=== PATIENT | male | born 2000 | race Caucasian/White ===

== ENCOUNTER 2020-09-26 12:28 | Inpatient (IN) | payer MEDICARE, MEDICAID ==
[~2020-09-26] VITALS: Ht 91.4 cm; Wt 37.3 kg
--- NOTE | 2020-09-26 12:52 | NUR ---
Pt's caregiver named Wilson states that she needs to leave and go to an appointment and would like a call when the patient is ready to be picked up. Her number is [phone]
[2020-09-26] MEDS ORDERED: SODIUM CHLORIDE FLUSH 10ML SYR IVF ONE (14:00)
[2020-09-26 14:32] LABS: BASOPHILS % (AUTO) 1 % (0-1); EOSINOPHILS % (AUTO) 3 % (1-7); LYMPHOCYTES % (AUTO) 26 % (22-44); MEAN CORPUSCULAR HEMOGLOBIN 28.1 pg (27.5-34.5); MEAN CORPUSCULAR HGB CONC 33.7 g/dL (33.2-36.2); MEAN PLATELET VOLUME 7.9 fL (7.4-10.4); MONOCYTES % (AUTO) 12 % (2-9); NEUTROPHILS % (AUTO) 58 % (42-75); PLATELET COUNT 298 x10^3/uL (130-400); RED CELL DISTRIBUTION WIDTH 14.7 % (9.4-14.8)
[2020-09-26 14:35] LABS: ANION GAP 10 mmol/L (5-15); CALCIUM 9.3 mg/dL (8.5-10.1); CHLORIDE 112 mmol/L (98-107)
[2020-09-26 14:38] LABS: ALANINE AMINOTRANSFERASE 14 U/L (12-78); ALKALINE PHOSPHATASE 236 U/L (45-117); BILIRUBIN,TOTAL 0.3 mg/dL (0.2-1.0); CREATININE 3.09 mg/dL (0.7-1.3); TOTAL PROTEIN 8.5 g/dL (6.4-8.2)
[2020-09-26 14:51] LABS: MICROSCOPIC INDICATED
--- NOTE | 2020-09-26 15:39 | NUR ---
PT RESTING IN BED. PT HAS EQUAL UNLABORED BREATHS. PT REFUSED ANY CURRENT WANTS OR NEEDS.
[2020-09-26] MEDS ORDERED: CEFTRIAXONE 1,000 MG in DEXTROSE 5% 50 ML IVPB ONE (16:00)
[2020-09-26] MEDS ORDERED: SODIUM CHLORIDE FLUSH 10ML SYR IVF PRN (16:30)
[2020-09-26] MEDS ORDERED: ONDANSETRON ODT 4 MG PO PRN (19:00)
[2020-09-26] MEDS ORDERED: DOCUSATE 100 MG CAPSULE PO PRN (19:00)
[2020-09-26] MEDS ORDERED: MELATONIN 5 MG TABLET PO PRN (19:00)
--- NOTE | 2020-09-26 20:15 | NUR ---
PT STATED "HE DOES NOT REMEBER HIS HOME MEDS"
[2020-09-26 20:30] VITALS: BP 154/71
[2020-09-27 00:30] VITALS: BP 129/76
[2020-09-27 00:54] VITALS: BP 154/71
[2020-09-27] MEDS ORDERED: HYDROmorphone 2 MG/ML, 1ML IVPush PRN (03:30)
[2020-09-27 05:54] LABS: BASOPHILS % (AUTO) 1 % (0-1); EOSINOPHILS % (AUTO) 3 % (1-7); LYMPHOCYTES % (AUTO) 32 % (22-44); MEAN CORPUSCULAR HGB CONC 34.1 g/dL (33.2-36.2); MEAN PLATELET VOLUME 7.9 fL (7.4-10.4); MONOCYTES % (AUTO) 14 % (2-9); NEUTROPHILS % (AUTO) 50 % (42-75); PLATELET COUNT 245 x10^3/uL (130-400); RED BLOOD COUNT 3.45 x10^6/uL (4.38-5.82); RED CELL DISTRIBUTION WIDTH 14.7 % (9.4-14.8)
[2020-09-27 06:22] LABS: CHLORIDE 108 mmol/L (98-107)
[2020-09-27 06:30] LABS: ALANINE AMINOTRANSFERASE 13 U/L (12-78); ALBUMIN 2.5 g/dL (3.4-5.0); ALKALINE PHOSPHATASE 207 U/L (45-117); ANION GAP 16 mmol/L (5-15); BILIRUBIN,TOTAL 0.3 mg/dL (0.2-1.0); CALCIUM 9.1 mg/dL (8.5-10.1); CREATININE 3.17 mg/dL (0.7-1.3); TOTAL PROTEIN 7.7 g/dL (6.4-8.2)
[2020-09-27 07:42] VITALS: BP 124/77
[2020-09-27] MEDS: LACTATED RINGERS 1,000 ML IV SCH ×2 (10:35→23:20)
[2020-09-27 12:29] VITALS: BP 128/77
[2020-09-27 12:36] LABS: CHLORIDE,URINE RANDOM 34 mmol/L; POTASSIUM,URINE RANDOM 25 mmol/L; SODIUM,URINE RANDOM 58 mmol/L
[2020-09-27 12:37] LABS: CREATININE,URINE RANDOM 45.7 mg/dL
[2020-09-27] MEDS: ACETAMINOPHEN 325 MG TABLET PO PRN (14:03)
[2020-09-27] MEDS ORDERED: FUROSEMIDE 20 MG/2 ML ONE (15:20)
[2020-09-27] MEDS: CEFTRIAXONE 1,000 MG in DEXTROSE 5% 50 ML IVPB SCH (16:45)
[2020-09-27] MEDS: SODIUM BICARBONATE 8.4% 75 MEQ in SODIUM CHLORIDE 0.45% 1,000 ML IV SCH (17:29)
[2020-09-27 18:59] VITALS: BP 116/70
[2020-09-28 00:25] VITALS: BP 143/83
[2020-09-28 05:38] LABS: ALBUMIN 2.7 g/dL (3.4-5.0); ANION GAP 14 mmol/L (5-15); CALCIUM 9.3 mg/dL (8.5-10.1); CHLORIDE 111 mmol/L (98-107); CREATININE 2.95 mg/dL (0.7-1.3)
[2020-09-28 07:02] VITALS: BP 146/82
[2020-09-28] MEDS: SODIUM BICARBONATE 8.4% 75 MEQ in SODIUM CHLORIDE 0.45% 1,000 ML IV SCH (09:41)
[2020-09-28 13:45] VITALS: BP 129/86
[2020-09-28 16:04] LABS: INTERNATIONAL NORMALIZED RATIO 1.05 (0.93-1.1); PROTHROMBIN TIME 11.2 Seconds (9.6-11.5)
[2020-09-28] MEDS: CEFTRIAXONE 1,000 MG in DEXTROSE 5% 50 ML IVPB SCH (16:13)
[2020-09-28 20:00] VITALS: BP 162/89
[2020-09-29 01:00] VITALS: BP 148/87
[2020-09-29] MEDS: ACETAMINOPHEN 325 MG TABLET PO PRN (02:28)
[2020-09-29] MEDS: SODIUM BICARBONATE 8.4% 75 MEQ in SODIUM CHLORIDE 0.45% 1,000 ML IV SCH (02:28)
[2020-09-29 06:12] LABS: ANION GAP 8 mmol/L (5-15); CALCIUM 8.6 mg/dL (8.5-10.1); CHLORIDE 112 mmol/L (98-107)
[2020-09-29 06:55] VITALS: BP 151/92
[2020-09-29] MEDS: CALCIUM ACETATE 667 MG CAPSULE PO SCH ×2 (08:37→15:24)
[2020-09-29] MEDS ORDERED: CALC667C PO ×3 (11:38→12:25)
[2020-09-29 12:15] VITALS: BP 157/87
[2020-10-01 17:14] LABS: ANA SCREEN NEGATIVE (Negative)
== END 2020-09-29 19:00 | disposition home or self-care (01) | DRG 683 ==
LOC: ED 14:32 → EDIP 16:23 → 3N 20:30
PROVIDERS: ADMIT Family Medicine; ATTEND Family Medicine
DX: N17.9 Acute kidney failure, unspecified (principal); E87.2 Acidosis; G82.20 Paraplegia, unspecified; N18.2 Chronic kidney disease, stage 2 (mild); N13.6 Pyonephrosis; Z91.040 Latex allergy status; Z91.048 Other nonmedicinal substance allergy status; D63.1 Anemia in chronic kidney disease; E86.0 Dehydration; N28.89 Other specified disorders of kidney and ureter; N31.9 Neuromuscular dysfunction of bladder, unspecified; Q05.9 Spina bifida, unspecified; Q53.10 Unspecified undescended testicle, unilateral; Z93.59 Other cystostomy status; R15.9 Full incontinence of feces
CPT/HCPCS: 36415; 74176; 76770; 78708; 80048; 80053; 80069; 81001; 82436; 82570; 83605; 83735; 84100; 84133; 84155; 84156; 84165; 84300; 85014; 85018; 85025; 85610; 85730; 86038; 86160; 86162; 87040; 87086; 87147; 87186; 96365; G0378; J0696; J1170; A9562; J1940; J7120

== ENCOUNTER 2020-10-09 14:03 | Day surgery (SDC) | payer MEDICARE, MEDICAID ==
[~2020-10-09] VITALS: Ht 121.9 cm; Wt 32.1 kg
[~2020-10-09 14:03] MED LIST: CALC667C PO
[2020-10-09] MEDS ORDERED: SODI650T PO (15:25)
[2020-10-09] MEDS ORDERED: SERT-238 PO (15:25)
[2020-10-09] MEDS ORDERED: OMEP20CA20 PO (15:25)
[2020-10-09] MEDS ORDERED: ASCO500C10 PO (15:25)
[2020-10-09] MEDS ORDERED: FERR-36 PO (15:25)
[2020-10-09] MEDS ORDERED: DOCU100C33 PO (15:25)
[2020-10-09] MEDS ORDERED: MULT-826 PO (15:25)
[2020-10-09] MEDS ORDERED: AMLO-210 PO (15:25)
[2020-10-09] MEDS ORDERED: METO-264 PO (15:25)
[2020-10-09] MEDS ORDERED: PLEASE ENTER HEIGHT AND WEIGHT MC SCH (15:30)
[2020-10-09] MEDS ORDERED: SODIUM CHLORIDE 0.9% 1,000 ML IV SCH (15:30)
[2020-10-09] MEDS ORDERED: CHLORHEXIDINE 15 ML UDC PO ONE (15:30)
[2020-10-09 15:40] VITALS: BP 136/82
[2020-10-09 15:56] LABS: MICROSCOPIC INDICATED
[2020-10-09] MEDS ORDERED: MIDAZOLAM 1 MG/ML, 2ML ONE (16:03)
[2020-10-09] MEDS ORDERED: FENTANYL PF 100 MCG/2ML ONE (16:03)
[2020-10-09] MEDS ORDERED: CEFTRIAXONE 1,000 MG in DEXTROSE 5% 50 ML IV ONE (16:15)
[2020-10-09] MEDS ORDERED: OMNIPAQUE 350 MG/ML, 50 ML BOTTLE ONE (17:30)
[2020-10-09] MEDS ORDERED: HYDROmorphone 1 MG/ML, 1ML INJ IVPush PRN (17:30)
[2020-10-09] MEDS ORDERED: OXYcodone 5 MG/5 ML ORAL.SOL UDC PO PRN (17:30)
[2020-10-09] MEDS ORDERED: HALOPERIDOL 5 MG/ML IV PRN (17:30)
[2020-10-09] MEDS ORDERED: FENTANYL PF 100 MCG/2ML IV PRN (17:30)
[2020-10-09] MEDS ORDERED: DIPHENHYDRAMINE 50 MG/ML, 1ML IVPush PRN (17:30)
[2020-10-09] MEDS ORDERED: PROMETHAZINE 25 MG/ML, 1ML IVPush PRN (17:30)
[2020-10-09] MEDS ORDERED: ONDANSETRON 2MG/ML, 2ML ONE (17:31)
[2020-10-09] MEDS ORDERED: PROPOFOL 10 MG/ML, 20ML ONE (17:31)
[2020-10-09] MEDS ORDERED: DEXAMETHASONE 4 MG/ML, 1ML ONE (17:31)
[2020-10-09] MEDS ORDERED: CEFAZOLIN 1,000 MG ONE (17:31)
[2020-10-09] MEDS ORDERED: PROMETHAZINE 25 MG/ML, 1ML ONE (17:49)
[2020-10-09] MEDS ORDERED: MORPHINE SULFATE 4 MG/ML, 1ML ONE (18:24)
[2020-10-09] MEDS ORDERED: morphine SULFATE 10 MG/ML, 1ML IVPush PRN (18:30)
== END 2020-10-09 20:35 | disposition home or self-care (01) ==
LOC: OR 14:03
PROVIDERS: ATTEND Urology
DX: N13.30 Unspecified hydronephrosis (principal); F41.9 Anxiety disorder, unspecified; I12.9 Hypertensive chronic kidney disease with stage 1 through stage 4 chronic kidney disease, or unspecified chronic kidney disease; N18.9 Chronic kidney disease, unspecified; Q05.9 Spina bifida, unspecified; G93.5 Compression of brain; G82.20 Paraplegia, unspecified; Z91.040 Latex allergy status; Z91.048 Other nonmedicinal substance allergy status; Z79.899 Other long term (current) drug therapy; Z98.890 Other specified postprocedural states
CPT/HCPCS: 52332; 74420; 81001; 87077; 87086; 87147; 87186; C1758; C2617; J0690; J1100; J2250; J2270; J2405; J2550; J2704; J3010; J7030; Q9967